=== PATIENT | female | born 1950 | race Caucasian/White ===

== ENCOUNTER 2018-03-05 22:14 | Inpatient (IN) | payer OTHER ==
[~2018-03-05] VITALS: Ht 157.5 cm; Wt 67.6 kg
[2018-03-05 22:22] VITALS: Ht 157.5 cm; Wt 67.6 kg
[2018-03-06 00:20] LABS: BASOPHIL % 0.8 % (0-2); PLATELET COUNT 277 x10^3mcL (130-400); RED CELL DISTRIBUTION WIDTH 14.2 % (11.5-14.5)
[2018-03-06 00:31] LABS: CALCIUM 8.5 mg/dL (8.5-10.1); CARBON DIOXIDE 22.4 mmol/L (21-32); CREATININE SERUM 1.4 mg/dL (0.6-1.0); POTASSIUM SERUM 3.7 mmol/L (3.5-5.1)
[2018-03-06 00:41] LABS: BILIRUBIN TOTAL 0.3 mg/dL (0.20-1.00); TOTAL PROTEIN, SERUM 7.1 g/dL (6.4-8.2)
[2018-03-06 00:45] LABS: ALBUMIN 2.6 g/dL (3.4-5.0)
[2018-03-06 03:33] LABS: UA SPECIFIC GRAVITY 1.015 (1.005-1.035); microscopic required? YES; urine erythrocyte 1+ (NEGATIVE)
[2018-03-06 03:42] LABS: AMPHETAMINE QUAL UR NONE DETECTED (See below)
[2018-03-06 03:51] VITALS: BP 154/86
[2018-03-06 03:52] LABS: CHOLESTEROL/HDL RATIO 4.7; MAGNESIUM 1.9 mg/dL (1.8-2.4); PHOSPHOROUS 3.9 mg/dL (2.5-4.9)
[2018-03-06 03:58] LABS: FREE T4 0.9 ng/dL (0.76-1.46); T4(THYROXINE) 5.6 ug/dL (4.7-13.3)
[2018-03-06 06:10] VITALS: BP 148/96
[2018-03-06 06:58] LABS: BASOPHIL % 0.9 % (0-2); PLATELET COUNT 261 x10^3mcL (130-400); RED CELL DISTRIBUTION WIDTH 13.8 % (11.5-14.5)
[2018-03-06 07:23] LABS: CALCIUM 8.3 mg/dL (8.5-10.1); CARBON DIOXIDE 23.8 mmol/L (21-32); CREATININE SERUM 1.4 mg/dL (0.6-1.0); POTASSIUM SERUM 3.4 mmol/L (3.5-5.1)
[2018-03-06 09:00] VITALS: BP 136/72
[2018-03-06 12:15] VITALS: BP 150/72
[2018-03-06] MEDS ORDERED: MECLIZINE HCL12.5 MG PO (12:37)
[2018-03-06] MEDS ORDERED: SCOP TD (12:38)
[2018-03-06 14:40] LABS: T3 TOTAL 0.93 ng/mL
[2018-03-06 15:36] VITALS: BP 150/72
== END 2018-03-06 16:19 | disposition home or self-care (01) | DRG 205 ==
LOC: ED 22:14 → DU 03-06 02:10
PROVIDERS: ADMIT Internal Medicine
DX: M94.0 Chondrocostal junction syndrome [Tietze] (principal); I50.43 Acute on chronic combined systolic (congestive) and diastolic (congestive) heart failure; N17.0 Acute kidney failure with tubular necrosis; E43 Unspecified severe protein-calorie malnutrition; I16.0 Hypertensive urgency; I11.0 Hypertensive heart disease with heart failure; H81.10 Benign paroxysmal vertigo, unspecified ear; E11.9 Type 2 diabetes mellitus without complications; E78.5 Hyperlipidemia, unspecified; Z95.5 Presence of coronary angioplasty implant and graft
CPT/HCPCS: 82962; 83880; 84439; J1940; J8597; Q0092

== ENCOUNTER 2018-10-08 00:42 | Inpatient (IN) | payer OTHER ==
[2018-10-08] VITALS (14 sets, daily range): BP systolic 143–196; BP diastolic 69–111
[~2018-10-08] VITALS: Ht 160 cm; Wt 64.9 kg
[~2018-10-08 00:42] MED LIST: MECLIZINE HCL12.5 MG PO; SCOP TD
--- NOTE | 2018-10-08 01:30 | NUR ---
PT AAOX4, NO S/S OF DISTRESS NOTED. PT C/O CONSTIPATION X 1 WEEK PT STATES "ITS HARD FOR ME TO GO, BUT ELSIE BEEN GOING [place] EVERY 30 MIN." PT REPORTS BLQ PAIN, PT REPORTS PAIN ON PALPATION.
--- NOTE | 2018-10-08 01:44 | NUR ---
PT INSTRUCTED TO GIVE CLEAN CATCH URINE SAMPLE. PT AMBULATED TO AND FROM RESTROOM WITH STEADY GAIT.
[2018-10-08 01:57] LABS: BASOPHIL % 0.3 % (0-2); PLATELET COUNT 222 x10^3mcL (130-400); RED CELL DISTRIBUTION WIDTH 12.7 % (11.5-14.5)
[2018-10-08 02:00] LABS: CALCIUM 7.7 mg/dL (8.5-10.1); CARBON DIOXIDE 22.9 mmol/L (21-32); CREATININE SERUM 1.8 mg/dL (0.6-1.0); POTASSIUM SERUM 4.1 mmol/L (3.5-5.1)
[2018-10-08 02:05] LABS: ALBUMIN 2.6 g/dL (3.4-5.0); BILIRUBIN TOTAL 0.37 mg/dL (0.20-1.00)
--- NOTE | 2018-10-08 02:06 | NUR ---
PT BACK FROM CT WITH OUT INCIDENT.
[2018-10-08 02:17] LABS: microscopic required? YES; urine erythrocyte 1+ (NEGATIVE)
--- NOTE | 2018-10-08 03:07 | NUR ---
PT REFUSED IV MORPHINE, STATING "IM NOT IN PAIN RIGHT NOW". DR GONZALEZ MADE AWARE.
[2018-10-08] MEDS ORDERED: ATORVASTATIN CA20 M1 PO (03:44)
[2018-10-08] MEDS ORDERED: FUROSEMIDE20 MG PO (03:45)
[2018-10-08] MEDS ORDERED: GOOD SENSE ASPI81 M3 PO (03:45)
[2018-10-08] MEDS ORDERED: GLIPIZIDE5 M3 PO (03:45)
[2018-10-08] MEDS ORDERED: BENAZEPRIL HYDR40 M1 PO (03:46)
[2018-10-08] MEDS ORDERED: CARVEDILOL6.25 M1 PO (03:46)
[2018-10-08] MEDS ORDERED: ALENDRONATE SOD35 M3 PO (03:47)
[2018-10-08] MEDS ORDERED: EPZICOM1 TAB (03:48)
--- NOTE | 2018-10-08 04:03 | NUR ---
REPORT GIVEN TO ANTONI MOFFETT TO ASSUME CARE OF PT.
--- NOTE | 2018-10-08 04:15 | NUR ---
PT RECEIVED FROM THE ED VIA WHEELCHAIR, ACCOMPANIED BY THE RN. PT ADMITTED FOR APPENDICITIS. PT IS ALERT AND ORIENTED X4, CALM AND COOPERATIVE WITH CARE. PT IS ABLE TO COMMUNICATE NEEDS. PT WAS ORIENTED TO ROOM AND CONTROLS, INSTRUCTED TO USE THE CALL LIGHT TO MAKE NEEDS KNOWN. SKIN IS INTACT, LUNG SOUNDS WERE CTAB, BREATHING IS EQUAL AND UNLABORED, NO ACUTE RESP DISTRESS NOTED. NO COUGH, NO SOB NOTED, PT DENIES CHEST PAIN/DISCOMFORT AT THIS TIME. PT IS MED/SURG, PT COMPLAINS OF ABDOMINAL DISCOMFORT/BLOATING, ABD IS SOFT AND SLIGHTLY DISTENDED, BOWEL SOUNDS PRESENT AND ACTIVE IN ALL 4 QUADRANTS, PEDAL PULSES PRESENT AND MODERATE IN BLE, RADIAL PULSES PALPABALE AND MODERATE, NO EDEMA NOTED. PT IS NPO AT THIS TIME. [address] IN THE LEFT ANTECUBITAL, INTACT AND PATENT, NO SIGNS OF INFILATRATION NOTED. SAFETY AND COMFORT MEASURES MAINTAINED, BED IN LOWEST POSITION, CALL LIGHT WITHIN REACH. WILL CONTINUE TO MONITOR AT THIS TIME.
--- NOTE | 2018-10-08 05:32 | NUR ---
PT IS RESTING WITH EYES CLOSED AT THIS TIME. PT IS ALERT AND ORIENTED X4, CALM AND COOPERATIVE WITH CARE. IV INFUSING AND INTACT, ALL QUESTIONS AND CONCERNS ADDRESSED, SAFETY AND COMFORT MEASURES MAINTAINED, BED IN LOWEST POSITION, CALL LIGHT WITHIN REACH. WILL ENDORSE CONTINUITY OF CARE TO THE ONCOMING RN.
--- NOTE | 2018-10-08 06:02 | NUR ---
PT BS IS 212, PT IS NPO AND DR NOEL MADE AWARE, PER DR NOEL GIVE 3 UNITS OF INSULIN AT THIS TIME. WILL CONTINUE TO MONITOR AT THIS TIME.
[2018-10-08 06:03] LABS: BASOPHIL % 0.4 % (0-2); PLATELET COUNT 207 x10^3mcL (130-400); RED CELL DISTRIBUTION WIDTH 13.6 % (11.5-14.5)
[2018-10-08 06:20] LABS: CALCIUM 8.1 mg/dL (8.5-10.1); CARBON DIOXIDE 24.3 mmol/L (21-32); CREATININE SERUM 1.8 mg/dL (0.6-1.0); POTASSIUM SERUM 4.4 mmol/L (3.5-5.1)
--- NOTE | 2018-10-08 07:00 | NUR ---
RECEIVED REPORT FROM ANTONI RN, PT IN NO ACUTE RESP DISTRESS
--- NOTE | 2018-10-08 08:30 | NUR ---
PT PREPARED FOR SURGICAL PROCEDURE, PRE-OP PREP DONE, GWEN BATH GIVEN, PT IN NO ACUTE DISTRESS
--- NOTE | 2018-10-08 09:05 | NUR ---
PT IN BED, IN NO ACUTE RESP DISTRESS, NPO
--- NOTE | 2018-10-08 09:24 | NUR ---
PT ASSISTED BY ELSY MOFFETT VIA [facility]
--- NOTE | 2018-10-08 11:49 | NUR ---
#16 DUTCH OGT INSERTED. VERIFCATION OF PLACEMENT CONFIRMED VIA AIR BOLUS OVER GASTRIC REGION. AWAITING XRAY TO CONFIRM.
--- NOTE | 2018-10-08 12:16 | NUR ---
RECEIVED PATIENT FROM PACU INTUBATED. INITIAL VENT SETTINGS PER ANESTHESIOLOGIST. PT NON-AROUSABLE, NO GAG ON SUCTION. ETT 7.0 SECURED 23CM AT RIGHT LIP. OBTAINED SPUTUM SAMPLE - MODERATE AMT OF JACY RED BLOOD, THICK - SENT SAMPLE TO LAB. ABG WAS OBTAINED AND CRITICAL PH RESULTS READ BACK AND CONFIRMED TO DR GAMBOA. VENT ALARMS AND PARAMETERS VERIFIED. AMBU BAG AND MASK BEDSIDE. WHEELS LOCKED ON VENT, PLUGGED INTO RED OUTLET.
--- NOTE | 2018-10-08 12:35 | NUR ---
PATIENT ATTEMPTING TO PULL ON TUBING AND LINES. SEDATION OF FENTANYL INITIATED AT 0.25 MCG/KG/HR AND VERSED AT 1 MG/HR. WILL MONITOR PATIENT CLOSELY.
--- NOTE | 2018-10-08 12:50 | NUR ---
DR HERNÁNDEZ AT BEDSIDE SPEAKING WITH PATIENT'S DAUGHTER AND GRAND DAUGHTER. PATIENT UPDATE PROVIDED BEDSIDE WITH ALL QUESTIONS AND CONCERNS ADDRESSED.
--- NOTE | 2018-10-08 13:22 | NUR ---
AT 1110- RECEIVED PATIENT FROM OR. PATIENT IS POST LAP APPY UNDER GENERAL ANAESTHESIA. PATIENT WAS RE-INTUBATED POST SURGERY. BP 159/75 HR 108 SINUS RHYTHM. RR 10 PLACED ON VENT; AC MODE FIO2 50%. O2 SAT 100%. PATIENT HAS EYES CLOSED . AIDE. MOVING EXTREMETIES. COMMENCED IV FLUIDS OF NS AT 100 ML/HR. AT 1140 - DOBSON CATHETER INSERTED AND LEFT ON FREE DRAINAGE. INSERTED OG TUBE. X-RAY ORDERED FOR PALCEMENT VERIFICATION. AT 1200 - IV ZOSYN NOW IN PROGRESS. GIVEN IV LASIX 40 MG PER EMAR. X-RAY AT BEDSIDE. PATIENT MORE AWAKE, FOLLOWING COMMANDS. PLACED IN MERI SOFT WRIST RESTRAINTS TO PREVENT PATIENT FROM PULLING AT TUBES AND LINES. AT 1220 - SECOND IV INITIATED IN R HAND. AT 1230 - COMMENCED ON MIDAZOLAM 1MG/HR AND FENTANYL 0.25 MCG/KG/HR AT 1245 - PATIENT'S DAUGHTER AND GRAND-DAUGHTER AT BEDSIDE. CN SPOKE WITH THEM AND EXPLAINED PPLAN OF CARE. AT 1250 - DR HERNÁNDEZ (RESPIRATORY SCIENTIST) AT BEDSIDE. SPOKE WITH FAMILY. NEW ORDERS RECEIVED.
[2018-10-08 13:27] LABS: PLATELET COUNT 213 x10^3mcL (130-400)
[2018-10-08 13:28] LABS: BASOPHIL % 0 % (0-2)
[2018-10-08 14:13] LABS: BILIRUBIN TOTAL 0.36 mg/dL (0.20-1.00); CALCIUM 7.9 mg/dL (8.5-10.1); CARBON DIOXIDE 21.2 mmol/L (21-32); MAGNESIUM 1.8 mg/dL (1.8-2.4); PHOSPHOROUS 4.7 mg/dL (2.5-4.9); POTASSIUM SERUM 4.3 mmol/L (3.5-5.1); TOTAL PROTEIN, SERUM 6.9 g/dL (6.4-8.2)
[2018-10-08 14:15] LABS: ALBUMIN 2.5 g/dL (3.4-5.0)
--- NOTE | 2018-10-08 15:02 | NUR ---
SEEN BY DR RUIZ. CONTINUE WITH CURRENT TREATMENTS AND CURRENT VENT SETTINGS. PALN FOR EXTUBATION STARING TOMORROW AM.
--- NOTE | 2018-10-08 15:40 | NUR ---
DR RUIZ BEDSIDE, WANTS PT ON CPAP FIRST THING EARLY TOMORROW MORNING FOR ASSESSMENT OF EXTUBATION LATER TOMORROW. ORDER PUT IN PER FOR CPAP TO START AT 0500 ON 10/09/18 PEEP+5, PS10.
--- NOTE | 2018-10-08 18:59 | NUR ---
PATIENT REMAINS LIGHTLY SEDATED. OPENS EYES AND ATTEMPTS TO MOVE AT TACTILE STIMULI. REMAINS ON ORIGINAL SADATION OF FENTANYL 0.25 MCG/KG/HR AND MIDAZOLAM 1 MG/HR. MONITOR SHOWING SINUS RHYTHM; RATE 80'S. BP STABLE. AFEBRILE. IV INFUSING NS AT 50 ML/HR. VENT ON AC MODE AT FIO2 30% TV 500, PEEP 5, RR 14. O2 SAT 100 %. DOBSON CATHETER DRAINING YELLOW URINE. TOTAL OUTPUT OF 1100 ML SINCE NOON. WILL ENDORSE CARE TO NIGHT NURSE.
--- NOTE | 2018-10-08 19:50 | NUR ---
PT. S/P LAP APPE, ON VERSED DRIP AT 1MG/HR AND FENTANYL DRIP AT 0.125 MCG/HR. RESPONDS TO TACTILE STIMULATION. PERRLA, BRISK. PT. INTUBATED, BREATH SOUNDS CLEAR THROUGHOUT LUNG KLINE. ETT/OGT IN-SITU, VENT ON AC MODE, RATE 14, FIO2 30%, TV 500 AND PEEP OF 5. ABD. SOFT AND ROUND, BOWEL SOUNDS HYPOACTIVE. BANDAIDS X3 TO ABD. DRY AND INTAC W/ ONLY SCANT AMOUNT OF OLD BLOOD NOTED. NO NEW BLEEDING. SCD'D TO BLE. PEDAL PULSES STRONG BLE. IVF TO RH AND LFA, SITES INTACT X2. HOB HOB 35 DEGREES.
--- NOTE | 2018-10-08 21:27 | NUR ---
PT. MORE AWAKE AND MOVING AROUND FREQUENTLY. ATTEMPTING TO REACH FOR ETT TUBE. HEART RATE INCREASING AND PATIENT TACHYCARDIC, 114. FENTANYL DRIP INCREASED TO 0.5MCG AT THIS TIME. O2 SAT LEVEL REMAINS 97-100%. RESP. ATE 26. WILL MONITOR.
[2018-10-09] VITALS (11 sets, daily range): BP systolic 102–207; BP diastolic 59–83; Ht 160 cm; Wt 64.9 kg
--- NOTE | 2018-10-09 03:37 | NUR ---
PT. MORE ALERT WHEN SHE IS AWAKE. NO RESP. DISTRESS NOTED THROUGHOUT NIGHT THUS FAR. REMAINS VENTED ON AC MODE, RATE 14, FIO2 30%, TV 500 AND PEEP OF 5. O2 SAT LEVELS STABLE AND REMAINS ABOVE 96%. MINIMAL SUCTIONING DONE THUS FAR. PT. HAS OCCASIONAL COUGH, WHICH MAY BE RELATED TO HER ETT TUBE. F/C DRAINING WELL TO GRAVITY.IVF NS INFUSING WELL TO LFA. VERSED DRIP AT 1 MG, FENTANYL AT 0.5 MCG.
[2018-10-09 05:48] LABS: BASOPHIL % 0.2 % (0-2); PLATELET COUNT 212 x10^3mcL (130-400); RED CELL DISTRIBUTION WIDTH 13.9 % (11.5-14.5)
--- NOTE | 2018-10-09 05:55 | NUR ---
VERSED AND FENTANYL IV DRIP TURNED OFF AT 0540. PT RESTING QUIETLY SO FAR. WILL CONTINUE TO MONITOR.
[2018-10-09 06:06] LABS: CARBON DIOXIDE 21.6 mmol/L (21-32); MAGNESIUM 1.8 mg/dL (1.8-2.4); PHOSPHOROUS 3.9 mg/dL (2.5-4.9); POTASSIUM SERUM 3.8 mmol/L (3.5-5.1)
--- NOTE | 2018-10-09 07:18 | NUR ---
PT. CARE ENDORSE OVER TO INCOMING NURSE.
--- NOTE | 2018-10-09 07:30 | NUR ---
DR. TAYLOR AT BEDSIDE, CHANGED VENT MODE TO CPAP FOR WEAN TRIAL. WILL CONTINUE TO MONITOR.
--- NOTE | 2018-10-09 09:42 | NUR ---
PT EXTUBATED @ 0923, PT TOLERATED EXTUBATION WELL. OG TUBE REMOVED WITH ETT. 2L NC IN PLACE, PT SPO2 98%. WILL CONTINUE TO MONITOR.
--- NOTE | 2018-10-09 11:50 | NUR ---
BEDSIDE SWALLOW EVAL COMPLETED. PT ABLE TO TOLERATE ICE CHIPS WELL, NO S/S ASPIRATION NOTED. WILL CONTINUE TO MONITOR.
--- NOTE | 2018-10-09 14:21 | NUR ---
PATIENT TRANSFERRED TO TELE VIA WHEELCHAIR ATTACHED TO TELE BOX ACCOMPANIED BY NURSE. REPORT GIVEN TO BETINA RODRIGUES BY BETINA GILMAN PRIOR TO PATIENT ARRIVING TO ROOM. ALL QUESTIONS AND CONCERN ADDRESSED. PATIENT STATES THAT HER BRACLET AND RING IS MISSING AND OR TEAM REMOVED IT PRIOR TO PATIENT GOING IN FOR SURGERY. BETINA RODRIGUES MADE AWARE. BETINA GILMAN WILL CALL FAMILY REGARDING PATIENT MOVING ROOMS AND WILL ASK REGARDING THE MISSING BRACLET AND RING. NO INCIDENCE OCCURRED UPON TRANSFER.
--- NOTE | 2018-10-09 14:26 | NUR ---
RECEIVED PT FROM ICU VIA WHEELCHAIR, NO RESPRIATORY DISTRESS NOTED, COMPLAINING OF ABD PAIN, S/P APPY 10/09, DOBSON CATH REMOVED BY ICU BEFORE TRANSFER, PT EDUCATED TO INFORM ME THE FIRT TIME SHE URINATES POST DOBSON CATH REMOVAL, A+OX4, PULSES MODERATE AND EQUAL MERI, NO EDEMA NOTED, LUNG SOUNDS CTA, TOLERATING RA, VS STABLE, BOWEL SOUNDS HYPOACTIVE, DENIES N/V/D, GENERALIZED WEAKNESS, AMBUALTORY, 3 INCISIONS WITH 3 BAND AIDS TO ABD CDI, IV IN R HAND SALINE LOCKED, IV IN LAC SALINE LOCKED, SITES WNL.
--- NOTE | 2018-10-09 14:28 | NUR ---
BETINA GILMAN ATTEMPTED TO CALL THE DAUGHTER TY WITH NO ANSWER.
--- NOTE | 2018-10-09 14:33 | NUR ---
PT STATES PAIN HAS DECREASED TO 2/10 AFTER LAYING DOWN AND IS TOLERABLE A THIS TIME, PT DECLINES PAIN MEDS AT THIS TIME.
--- NOTE | 2018-10-09 14:45 | NUR ---
SECURITY LOOKED THROUGH LOST AND FOUND AND COULD NOT FIND PTS RING OR BRACELET.
--- NOTE | 2018-10-09 17:44 | NUR ---
PT COMPLAINING OF 8/10 ABD PAIN, NORCO PO GIVEN, NO RESPRIATORY DISTRESS NOTED, CALL LIGHT WITHIN REACH.
--- NOTE | 2018-10-09 19:50 | NUR ---
PATIENT RECEIVED IN BED AWAKE,ALERT AND ORIENTED X4, SPEECH CLEAR DENIED BOSCH NOR DIZZINESS. PATIENTS SON STATES THAT PATIENT IS HARD OF HEARING TO HER RT EAR AND HEARING IS DIMINISHED ALSO TO THE LEFT, DOESNT WANT TO EAR HEARING AID THUS IT MAKES HER OLD PER MOTHER. BREATHING EVEN AND UNLABORED BS CLEAR, ON ROOM AIR SAT 95%. DENIES CHEST PAINS HR=92BPM, TELE#21 NSR, RHYTHM REGULAR. 8/4 S/P LAP /APPY NON RUPTURED, X4 ABDOMINAL SURGICAL INCISION WITH BAND AID CDI, ELVER TO INCISIONS INTACT, NO BLEEDING AT SITE, COMPLAINED OF SURGICAL PAIN SPECIALLY WHEN MOVING RATE AT 5/10, WILL MEDICATE PRN, MADE COMFORTABLE IN BED, PASSED CONNOR BUT NO BM YET. F/C DC IN ICU AND PATIENT STATES VOIDED SINCE THEN. HEPLOCK TO RH AND LFA INTACT AND PATENT,TAPE SECURED, COVERED WITH DUAL CAP. PATIENT AND FAMILY INFORMED ABOUT POC THIS SHIFT.SAFETY PRECAUTIONS MAINTAINED. WILL CONTINUE TO MONITOR.
--- NOTE | 2018-10-09 19:58 | NUR ---
ENDORSED CARE TO JULIANNA MOFFETT.
--- NOTE | 2018-10-09 20:26 | NUR ---
COMPLAINED OF ABDOMINAL SURGICAL PAIN, RATED AT 7/10 MEDICATED PRN, MADE COMFORTABLE IN BED. WILL CHECK EFFECTIVENESS.
--- NOTE | 2018-10-09 21:21 | NUR ---
PATIENT STATED PAIN IS AT 2/10 COMFORTABLE. WILL CONTINUE TO MONITOR.
--- NOTE | 2018-10-10 00:15 | NUR ---
ROUNDS MADE PATIENT SLEEPING COMFORTABLY AND QUIETLY THIS TIME. NO DISTRESS NOTED. SAFETY MAINTAINED.WILL CONTINUE TO MONITOR.
[2018-10-10 01:13] LABS: AMPHETAMINE QUAL UR NONE DETECTED (See below)
--- NOTE | 2018-10-10 01:39 | NUR ---
PATIENT MOVED TO ROOM 202A D/T BATHROOM FAUCET CONTINUOUS WATER FLOWING.ALL BELONGINGS TRANSFERRED.
--- NOTE | 2018-10-10 03:00 | NUR ---
SLEEPING QUIETLY THIS TIME NO DISTRESS. WILL CONTINUE TO MONITOR.
[2018-10-10 05:37] LABS: BASOPHIL % 0.4 % (0-2); PLATELET COUNT 249 x10^3mcL (130-400); RED CELL DISTRIBUTION WIDTH 13.6 % (11.5-14.5)
[2018-10-10 05:43] LABS: CALCIUM 8.5 mg/dL (8.5-10.1); CARBON DIOXIDE 24.2 mmol/L (21-32); CREATININE SERUM 2.4 mg/dL (0.6-1.0); POTASSIUM SERUM 3.7 mmol/L (3.5-5.1)
[2018-10-10 05:51] VITALS: BP 155/53
--- NOTE | 2018-10-10 06:19 | NUR ---
PATIENT HAD A RESTFUL AND COMFORTABLE NIGHT, NO DISTRESS ENCOUNTERED. AMBULATORY AND VOIDED WITHOUT DIFF. HEPLOCK INTACT AND FLUSHED WELL. SAFETY PRECAUTIONS MAINTAINED. WILL ENDORSE CONTINUITY OF CARE TO INCOMING NURSE.
--- NOTE | 2018-10-10 07:28 | NUR ---
BEDSIDE HANDS OFF AND INTRODUCTION PERFORMED WITH INCOMING NURSE MALLORIE-RN, ALSO ENDORSE TO RN TO FOLLOW ABOUT MED FOR PATIENT COMPLAINT OF SORE THROAT AND ABOUT INQUIRY REGARDING MISSING GOLD RING AND BRACELET WHICH SHE STATED GOT REMOVED BEFORE SHE WENT FOR SURGERY.
--- NOTE | 2018-10-10 07:44 | NUR ---
RECEIVED PATIENT FROM BETINA LEVINE. PATIENT IN BED AT THIS TIME, NO COMPLAINTS OF PAIN. STATES PASSING GAS "A LITTLE", ABD INCISIONS CDI. WILL CONTINUE TO MONITOR. WILL SPEAK WITH RESIDENTS DURING ROUNDS FOR THROAT LOZENGES. CALL LIGHT IN REACH AT THIS TIME.
[2018-10-10 10:01] VITALS: BP 105/54
--- NOTE | 2018-10-10 12:56 | NUR ---
PATIENT IN BED AT THIS TIME. DENIES PAIN. SPOKE WITH DAUGHTER VIA PHONE ABOUT PATIENT PLAN, INFORMED HER PATIENT NEEDS TO BE SEEN BY SURGEON BEFORE SHE IS CLEARED FOR DISCHARGE. DAUGHTER AGREES, WILL SPEAK WITH DAUGTHER ONCE SHE ARRIVES. CALL LIGHT IN REACH AT THIS TIME. PATIENT SEEN AMBULATING TO BR.
[2018-10-10 13:15] VITALS: BP 130/44
--- NOTE | 2018-10-10 17:21 | NUR ---
PATIENT CONTINUES TO BE IN BED AT THIS TIME. OBSERVED WALKING WITHOUT ASSISTANCE. CASE DALLIN BERNARD IN TO SPEAK WITH PATIENT EARLIER. PRN LOZENGE GIVEN AND INSTRUCTED THAT SHE CAN HAVE IT EVERY 2 H, PATIENT VERBALIZES UNDERSTANDING. CALL LIGHT IN REACH A THIS TIME.
[2018-10-10 17:45] VITALS: BP 168/72
--- NOTE | 2018-10-10 17:59 | NUR ---
PATIENT IN BED AT THIS TIME. NO COMPLAINTS OF PAIN. SPOKE WITH SON SHELDON ON PHONE ABOUT PLAN OF CARE. SON AGREES. WILL CONTINUE TO MONITOR PATIENT FOR BM. WILL ENDORSE TO ONCOMING NURSE.
--- NOTE | 2018-10-10 19:40 | NUR ---
PT IS A/O X2. PT IS SLOW TO REPSOND. PT IS ON TELE # 21 NSR HR 70. PT DENIES ANY CHEST PAIN OR SOB AT THIS TIME. PT HAS PALPABLE PULSES, NO EDEMA NOTED. PT HAS CLEAR LUNG SOUNDS, DIMINSHED AT BASES. PT HAS LAP JESSICA NON RUPTURED 10/08. PT HAS HYPOACTIVE BOWEL SOUNDS. LAST BM 10/04. PT HAS PASSED GAS. NO BM SINCE 10/04. PT VOIDS AND AMBULATES REGULARY. PT HAS X4 ABD INSCIONS COVERED WITH BANDADID CDI. PT DENIES ANY PAIN AT THIS TIME. PT HAS IV TO LAC S/L. IV TO RH INFUSIGN WELL. WILL CONT TO MONITOR, CALL LIGHT WITHIN REACH.
[2018-10-10 21:06] VITALS: BP 126/42
--- NOTE | 2018-10-11 01:05 | NUR ---
PT C/O OF ABD PAIN. GAVE NORCO X1 PER EMAR. WILL CONT TO MONITOR. CALL LIGHT WITHIN REACH.
--- NOTE | 2018-10-11 01:30 | NUR ---
PT IN BED ASLEEP. BREATHING EVEN AND UNLABORED. NO RESP DISTRESS NOTED. WILL CONT TO MONITOR, CALL LIGHT WITHIN REACH.
--- NOTE | 2018-10-11 05:19 | NUR ---
PT SLEPT ON AND OFF THROUGH THE NIGHT. PT BREATHING EVEN ADN UNLABORED. NO RESP DISTRESS NOTED. X4 ABD INSCIONS CDI COVERED WITH BANDAGES. PT IS ON TELE 21. PT DENIES ANY CHEST PAIN OR SOB AT THIS TIME TIME. PT IS IV TO LAC INFUSING WELL, IV TO RH S/L. PT HAS NOT HAD A BOWEL MOVEMENT POST LAP APPY. PT HAS PASSED GAS. PT WAS COOPERATIVE WITH NURSING CARE. NO ACUTE CHANGES DURING THE NIGHT. WILL CONT TO MONITOR. CALL LIGHT WITHIN REACH. WILL ENDORSE CARE TO DAY SHIFT NURSE.
[2018-10-11 05:57] VITALS: BP 141/55
--- NOTE | 2018-10-11 07:30 | NUR ---
PATIENT RESTING IN BED, NO ACUTE DISTRESS NOTED. PATIENT DENIES PAIN AT THIS TIME. TELE MONITOR IN PLACE. NO RESP. DISTRES, DENIES SOB. PATIENT STATES SHE HAD A BM THIS MORNING AND STATED " IT WAS A GOOD AMOUNT", PATIENT FELT RELIEF AFTER BM. PATIENT HAS X3 BANDAIDS TO ABDOMEN, CDI & NO DRAINAGE NOTED. IV TO RH & LAC SALINE LOCK, CDI & PATENT, NO S/S OF INFILTRATION. CALL LIGHT WITHIN WITHIN REACH, BED IN LOW POSITION, WILL CONTINUE TO MONITOR FOR CHANGES.
[2018-10-11 08:32] LABS: BASOPHIL % 0.7 % (0-2); PLATELET COUNT 257 x10^3mcL (130-400); RED CELL DISTRIBUTION WIDTH 13.7 % (11.5-14.5)
[2018-10-11 08:58] LABS: CALCIUM 8.6 mg/dL (8.5-10.1); CARBON DIOXIDE 24.5 mmol/L (21-32); CREATININE SERUM 2.5 mg/dL (0.6-1.0); POTASSIUM SERUM 3.4 mmol/L (3.5-5.1)
--- NOTE | 2018-10-11 09:09 | NUR ---
DR TAYLOR AT BEDSIDE. DR TAYLOR GAVE VERBAL ORDER FOR PATIENT TO HAVE INCENTIVE SPIROMETER, WILL CARRY OUT ORDERS AT THIS TIME.
[2018-10-11 09:15] VITALS: BP 130/51
[2018-10-11 12:28] VITALS: BP 137/59
--- NOTE | 2018-10-11 12:32 | NUR ---
PATIENT NOTIFIED DAUGHTER OF MISSING BELONGINGS, PATIENT STATED DAUGHTER HAD HER RING AND BRACELET.
[2018-10-11 14:01] VITALS: BP 137/59
[2018-10-11 15:29] VITALS: BP 137/59
--- NOTE | 2018-10-11 16:50 | NUR ---
PATIENT WAS D/C HOME. PATIENT RECEIVED COPY OF D/C INSTRUCTIONS, PATIENT UNDERSTANDS AND AGREES WITH D/C INSTRUCTIONS & PLAN OF CARE, INCLUDING MEDICATIONS AND FOLLOW UP CARE. ALL QUESTIONS AND CONCERNS ADDRESSED. TELE MONITOR & ARMBANDS REMOVED. IV TO RIGHT HAND & LAC REMOVED, CATH INTACT. PATIENT TAKEN DOWN BY FORENSIC INVESTIGATOR.
== END 2018-10-11 16:51 | disposition home or self-care (01) | DRG 341 ==
LOC: ED 00:42 → MU 03:03 → DU 03:03 → IC 03:03 → MU 04:52 → IC 10:47 → DU 10-09 14:12
PROVIDERS: Anesthesiology; Emergency Medicine; Internal Medicine; Surgery; ADMIT Internal Medicine
PROC: 0DTJ4ZZ Resection of Appendix, Percutaneous Endoscopic Approach (ICD-10-PCS; principal; 2018-10-08 09:30)
DX: K35.80 Unspecified acute appendicitis (principal); E43 Unspecified severe protein-calorie malnutrition; N17.0 Acute kidney failure with tubular necrosis; J96.01 Acute respiratory failure with hypoxia; I16.0 Hypertensive urgency; I11.0 Hypertensive heart disease with heart failure; I50.9 Heart failure, unspecified; E78.5 Hyperlipidemia, unspecified; R80.9 Proteinuria, unspecified; N20.0 Calculus of kidney; I25.10 Atherosclerotic heart disease of native coronary artery without angina pectoris; F41.9 Anxiety disorder, unspecified; Z68.25 Body mass index [BMI] 25.0-25.9, adult; Z95.5 Presence of coronary angioplasty implant and graft
CPT/HCPCS: 36600; 82962; 83880; A4628; G0378; J0330; J0360; J0690; J1170; J1885; J1940; J2250; J2270; J2310; J2405; J2543; J2704; J2710; J3010; J3490; J7030; J7040; J7620; Q0092